=== PATIENT | female | born 1955 | race Caucasian/White ===

== ENCOUNTER 2017-07-09 15:55 | Emergency (ER) | payer MEDICAID ==
[~2017-07-09] VITALS: Ht 157.5 cm; Wt 83.0 kg
[2017-07-09 16:08] VITALS: BP 145/91; Ht 157.5 cm; Wt 83.0 kg
== END 2017-07-09 17:27 | disposition home or self-care (01) ==
LOC: ED 15:55
DX: B34.9 Viral infection, unspecified (principal)
CPT/HCPCS: J7613; J7644